=== PATIENT | male | born 1990 | race Caucasian/White ===

== ENCOUNTER 2018-01-04 14:55 | Emergency (ER) | payer OTHER ==
[2018-01-04] MEDS: LORAZEPAM 2 MG INJ IV (15:19)
[2018-01-04] MEDS: SOD CHLORIDE 0.9% 1,000 ML IV (15:19)
[2018-01-04 15:44] LABS: ANION GAP 21 (8-16); BLOOD UREA NITROGEN 13 mg/dl (7-20); CALCIUM 9.6 mg/dl (8.4-10.2); CARBON DIOXIDE 24 mmol/L (21-31); CHLORIDE 107 mmol/L (97-110); CREATININE 0.86 mg/dl (0.61-1.24); GLUCOSE 108 mg/dl (70-220); SODIUM 148 mmol/L (135-144)
== END 2018-01-04 16:40 | disposition home or self-care (01) ==
LOC: E/R 14:55
DX: F11.23 Opioid dependence with withdrawal (principal); F17.210 Nicotine dependence, cigarettes, uncomplicated; Z76.5 Malingerer [conscious simulation]
CPT/HCPCS: 36415; 80048; 96374; 99284-25